=== PATIENT | female | born 1950 | race Caucasian/White ===

== ENCOUNTER 2017-07-21 20:00 | Emergency (ER) | payer MEDICARE, OTHER ==
[2017-07-21] MEDS ORDERED: Sodium Chloride 0.9% 1,000 ML IV SCH (20:30)
--- NOTE | 2017-07-21 21:12 | EDM.PDOC ---
ED HPI GENERAL MEDICAL PROBLEM - General Chief Complaint: Chest Pain Stated Complaint: CHEST PAIN Time Seen by Provider: 07/21/17 20:11 Source of Information: Reports: Patient History Limitations: Reports: No Limitations - History of Present Illness INITIAL COMMENTS - FREE TEXT/NARRATIVE: This is a 66-year-old female. Tonight she was at [employer] for the [employer] and ate some pork ribs green contreras salad and potato salad prior to going to the show. She didn't feel real good after that and felt like she needed to have a bowel movement. While she was sitting on the toilet she became nauseated and had cold sweats felt really weak and she did have a soft stool with no blood. Afterwards when she got up and started walking to the musical she got severely nauseated and vomited multiple times everything up that she ate. She comes to the ER and about shelter here started feeling much better. During this occurrence she was having some epigastric fullness and pain did not radiate into her neck or down her arms or into her back. Presently she feels much more comfortable and is resting quietly. She has no history of cardiac disease. Apparently the person that she is with also ate much of the same food she did but he is doing okay. 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 OB/BYN History: Hematologic History: Reports: Anemia - Infectious Disease History Infectious Disease History: Reports: Chicken Pox, Measles - Past Surgical History GI Surgical History: Reports: Hernia, Abdominal, Hernia Repair/Other, Federico Fundoplication Dermatological Surgical History: Reports: Skin Biopsy Social & Family History - Family History Cardiac: Reports: Other (See Below) Other Cardiac Family History: both brothers have had open heart surgery Respiratory: Reports: COPD Other Respiratory Family Hisory: father had copd and black lung was a coal deliverer - Tobacco Use Smoking Status *Q: Never Smoker Second Hand Smoke Exposure: No - Caffeine Use Caffeine Use: Reports: Coffee - Alcohol Use Days Per Week of Alcohol Use: 5 Number of Drinks Per Day: 1 Total Drinks Per Week: 5 Date of Last Drink: 07/21/17 Time of Last Drink: 17:15 - Recreational Drug Use Recreational Drug Use: No ED ROS GENERAL - Review of Systems Review Of Systems: See Below Constitutional: Denies: Fever, Chills HEENT: Reports: No Symptoms Respiratory: Reports: No Symptoms Cardiovascular: Reports: Chest Pain, Lightheadedness Endocrine: Reports: No Symptoms GI/Abdominal: Reports: Abdominal Pain, Nausea, Vomiting. Denies: Bloody Stool, Diarrhea, Distension : Reports: No Symptoms Musculoskeletal: Reports: No Symptoms Skin: Reports: No Symptoms Neurological: Reports: No Symptoms Psychiatric: Reports: No Symptoms Hematologic/Lymphatic: Reports: No Symptoms ED EXAM, GENERAL - Physical Exam Exam: See Below Exam Limited By: No Limitations General Appearance: Alert, WD/WN, No Apparent Distress Eye Exam: Bilateral Eye: Normal Inspection Ears: Normal External Exam, Normal Canal, Normal TMs Nose: Normal Inspection Throat/Mouth: Normal Inspection, Normal Lips, Normal Oropharynx, Normal Voice Head: Atraumatic, Normocephalic Neck: Supple Respiratory/Chest: No Respiratory Distress, Lungs Clear, Normal Breath Sounds Cardiovascular: Regular Rate, Rhythm, No Murmur GI/Abdominal: Soft, Non-Tender, Other (The epigastric discomfort that she was having has resolved she is not tender there is no rigidity there's no rebound noted) Back Exam: Full Range of Motion Extremities: Normal Inspection, Normal Range of Motion Neurological: Alert, Oriented Psychiatric: Normal Affect, Normal Mood Skin Exam: Warm, Dry EKG INTERPRETATION EKG Date: 07/21/17 Time: 19:15 EKG Interpretation Comments: EKG shows a normal sinus rhythm, there are no acute ST or T-wave changes noted and no ischemic changes noted on the EKG. Course - Vital Signs Last Recorded V/S: Last Vital Signs Temp 97.0 F 07/21/17 20:11 Pulse 90 07/21/17 20:11 Resp 16 07/21/17 20:11 BP 139/98 H 07/21/17 20:11 Pulse Ox 94 L 07/21/17 20:11 - Orders/Labs/Meds Orders: Active Orders 24 hr Category Date Time Status EKG 12 Lead [EKG Documentation Completion] [RC] STAT Care 07/21/17 20:21 Active Chest 1V Frontal [CR] Stat Exams 07/21/17 20:21 Taken Sodium Chloride 0.9% [Normal Saline] 1,000 ml Med 07/21/17 20:30 Active IV ASDIRECTED Medication Orders Sodium Chloride (Normal Saline) 1,000 mls @ 1,000 mls/hr IV ASDIRECTED CAL Last Admin: 07/21/17 20:35 Dose: 1,000 mls/hr Labs: Laboratory Tests 07/21/17 07/21/17 Range/Units 20:15 20:15 WBC 13.54 H (3.98-10.04) K/mm3 RBC 5.35 H (3.98-5.22) M/mm3 Hgb 16.1 H (11.2-15.7) gm/L Hct 47.1 H (34.1-44.9) % MCV 88.0 (79.4-94.8) fl MCH 30.1 (25.6-32.2) pg MCHC 34.2 (32.2-35.5) g/dl RDW Std Deviation 42.6 (36.4-46.3) fL Plt Count 306 (182-369) K/mm3 MPV 10.1 (9.4-12.3) fl Neut % (Auto) 77.7 H (34.0-71.1) % Lymph % (Auto) 15.7 L (19.3-51.7) % [place] % (Auto) 5.3 (4.7-12.5) % Eos % (Auto) 0.6 L (0.7-5.8) Baso % (Auto) 0.1 (0.1-1.2) % Neut # (Auto) 10.53 H (1.56-6.13) K/mm3 Lymph # (Auto) 2.12 (1.18-3.74) K/mm3 [place] # (Auto) 0.72 H (0.24-0.36) K/mm3 Eos # (Auto) 0.08 (0.04-0.36) K/mm3 Baso # (Auto) 0.01 (0.01-0.08) K/mm3 Sodium 143 (136-145) mEq/L Potassium 3.0 L (3.5-5.1) mEq/L Chloride 105 (98-107) mEq/L Carbon Dioxide 26 (21-32) mEq/L Anion Gap 15.0 (5-15) BUN 22 H (7-18) mg/dL Creatinine 1.1 H (0.55-1.02) mg/dL Est Cr Clr Drug Dosing TNP Estimated GFR (MDRD) 49 (>60) mL/min BUN/Creatinine Ratio 20.0 H (14-18) Glucose 172 H (80-115) mg/dL Calcium 9.8 (8.5-10.1) mg/dL Total Bilirubin 0.8 (0.2-1.0) mg/dL AST 34 (15-37) U/L ALT 26 (14-59) U/L Alkaline Phosphatase 16 L (46-116) U/L Troponin I < 0.017 (0.00-0.056) ng/mL Total Protein 7.4 (6.4-8.2) g/dl Albumin 4.2 (3.4-5.0) g/dl Globulin 3.2 gm/dL Albumin/Globulin Ratio 1.3 (1-2) Meds: Medications Generic Name Dose Route Start Last Admin Trade Name Freq PRN Reason Stop Dose Admin Sodium Chloride 1,000 mls @ 1,000 mls/hr 07/21/17 20:30 07/21/17 20:35 Normal Saline IV 1,000 mls/hr ASDIRECTED CAL Administration - Radiology Interpretation Free Text/Narrative:: Chest x-ray does not show any acute abnormalities - Re-Assessments/Exams Free Text/Narrative Re-Assessment/Exam: 07/21/17 22:11 I spoke to the patient and her significant other regarding the labs and EKG and chest x-ray. I cautioned her that this is stomach related and she probably had a vasovagal response from the food in her stomach but that it was good that she vomited the food out. I also explained I'll be surprised if she has maybe some slight diarrhea tomorrow. She is to be very careful what she eats tomorrow so that she doesn't aggravate her stomach symptoms again. Departure - Departure Time of Disposition: 22:12 Disposition: Home, Self-Care 01 Condition: Good Clinical Impression: Stomach cramps Nausea and vomiting Qualifiers: Vomiting type: unspecified Vomiting Intractability: non-intractable Qualified Code(s): R11.2 - Nausea with vomiting, unspecified Referrals: PCP,Not In Area [Primary Care Provider] - Forms: ED Department Discharge Additional Instructions: Drink fluids only until noon tomorrow and avoid sodas and alcohol, at noon try to eat something that is easy to digest such as crackers toast and yogurt and avoid vegetables and meats at least for 24 hours, if you have worsening of symptoms then return to the ER, follow-up with your family doctor once you get home for recheck - My Orders Last 24 Hours: My Active Orders 07/21/17 20:21 EKG 12 Lead [EKG Documentation Completion] [RC] STAT Chest 1V Frontal [CR] Stat 07/21/17 20:30 Sodium Chloride 0.9% [Normal Saline] 1,000 ml IV ASDIRECTED - Assessment/Plan Last 24 Hours: My Active Orders 07/21/17 20:21 EKG 12 Lead [EKG Documentation Completion] [RC] STAT Chest 1V Frontal [CR] Stat 07/21/17 20:30 Sodium Chloride 0.9% [Normal Saline] 1,000 ml IV ASDIRECTED
--- NOTE | 2017-07-24 18:00 | CR ---
Chest: Portable view of the chest was obtained. Comparison: No previous study. Heart size and mediastinum are normal. Lungs are clear. Slight scoliosis and degenerative change is seen within the spine. Impression: 1. Incidental findings. Nothing acute is appreciated on portable chest x-ray. Diagnostic code #2
== END 2017-07-21 22:25 | disposition home or self-care (01) ==
LOC: JD.ED 20:00
DX: R10.9 Unspecified abdominal pain (principal); R11.2 Nausea with vomiting, unspecified; K21.9 Gastro-esophageal reflux disease without esophagitis; Z98.890 Other specified postprocedural states
CPT/HCPCS: 36415; 71010; 80053; 84484; 85025; 93005; 96360; 99285; J7040; 99284